=== PATIENT | female | born 1995 | race Caucasian/White ===

== ENCOUNTER 2017-04-28 22:14 | Emergency (ER) | payer MEDICAID ==
[~2017-04-28] VITALS: Ht 157.5 cm; Wt 50.9 kg
[2017-04-28] MEDS ORDERED: ONDANSETRON 2MG/ML, 2ML IVPush ONE (22:30)
[2017-04-28] MEDS ORDERED: SODIUM CHLORIDE FLUSH 10ML SYR IVF ONE (22:30)
[2017-04-28] MEDS ORDERED: DICYCLOMINE 10 MG/ML, 2ML IM ONE (22:30)
[2017-04-28] MEDS ORDERED: SODIUM CHLORIDE 0.9% 1,000ML IVBOLUS ONE (22:30)
[2017-04-28] MEDS ORDERED: ONDANSETRON 2MG/ML, 2ML ONE (22:51)
[2017-04-28 23:02] LABS: ASPARTATE AMINO TRANSFERASE 18 U/L (15-37); BLOOD UREA NITROGEN 11 mg/dL (7-18)
[2017-04-28 23:19] VITALS: BP 102/69
== END 2017-04-28 23:22 | disposition home or self-care (01) ==
LOC: ED 23:20
DX: R19.7 Diarrhea, unspecified (principal); R11.2 Nausea with vomiting, unspecified; E86.0 Dehydration
CPT/HCPCS: 36415; 80053; 81003; 83690; 84703; 85025; 96361; 96372; 96374; 99284; J0500; J2405; J7030

== ENCOUNTER 2019-11-23 16:16 | Day surgery (SDC) | payer OTHER ==
[~2019-11-23] VITALS: Ht 157.5 cm; Wt 49.2 kg
[~2019-11-23 16:16] MED LIST: KETOROLAC 30 MG/1 ML ONE
[2019-11-23] MEDS ORDERED: LACTATED RINGERS 1,000 ML IV STA (16:28)
[2019-11-23] MEDS ORDERED: PREN1TAB60 PO (16:38)
[2019-11-23 16:41] VITALS: BP 115/74
[2019-11-23 16:51] LABS: BASOPHILS # (AUTO) 0.07 x10^3/uL (0-0.1); BASOPHILS % (AUTO) 1 % (0-1); EOSINOPHILS # (AUTO) 0.15 x10^3/uL (0-0.4); EOSINOPHILS % (AUTO) 2 % (1-7); LYMPHOCYTES # (AUTO) 1.78 x10^3/uL (1-3.4); LYMPHOCYTES % (AUTO) 24 % (22-44); MD NO; MEAN CORPUSCULAR HGB CONC 33.3 g/dL (32.4-35.8); MEAN PLATELET VOLUME 8.2 fL (7.4-10.4); MONOCYTES # (AUTO) 0.36 x10^3/uL (0.2-0.8); MONOCYTES % (AUTO) 5 % (2-9); NEUTROPHILS # (AUTO) 5.16 x10^3/uL (1.8-6.8); NEUTROPHILS % (AUTO) 69 % (42-75); PLATELET COUNT 289 x10^3/uL (130-400); RED BLOOD COUNT 4.02 x10^6/uL (3.82-5.3); RED CELL DISTRIBUTION WIDTH 13.6 % (9.6-15.2)
[2019-11-23] MEDS ORDERED: FENTANYL PF 100 MCG/2ML ONE (17:29)
[2019-11-23] MEDS ORDERED: MIDAZOLAM 1 MG/ML, 2ML ONE (17:29)
[2019-11-23] MEDS ORDERED: ACETAMINOPHEN 325 MG TABLET PO PRN (17:30)
[2019-11-23] MEDS ORDERED: PROMETHAZINE 25 MG/ML, 1ML IV PRN (17:30)
[2019-11-23] MEDS ORDERED: DIAZEPAM 5 MG/ML, 2ML IVPush PRN (17:30)
[2019-11-23] MEDS ORDERED: LACTATED RINGERS 1,000 ML IV ONE (17:30)
[2019-11-23] MEDS ORDERED: MIDAZOLAM 1 MG/ML, 2ML IV PRN (17:30)
[2019-11-23] MEDS ORDERED: OXYcodone 5 MG/5 ML ORAL.SOL UDC PO PRN (17:30)
[2019-11-23] MEDS ORDERED: ALBUTEROL/IPRATROPIUM 2.5MG/0.5MG, 3 ML NPPB PRN (17:30)
[2019-11-23] MEDS ORDERED: HYDROmorphone 2 MG/ML, 1ML IVPush PRN (17:30)
[2019-11-23] MEDS ORDERED: METOPROLOL 1 MG/ML, 5ML IV PRN (17:30)
[2019-11-23] MEDS ORDERED: hydrALAzine 20 MG/ML, 1ML IV PRN (17:30)
[2019-11-23] MEDS ORDERED: FENTANYL PF 100 MCG/2ML IV PRN (17:30)
[2019-11-23] MEDS ORDERED: MEPERIDINE/PF 25MG/ML,1ML IVPush PRN (17:30)
[2019-11-23] MEDS ORDERED: SCOPOLAMINE PATCH, 1.5MG PATCH.TD72 TD PRN (17:30)
[2019-11-23] MEDS ORDERED: LIDOCAINE 1%, 20ML ONE (17:43)
[2019-11-23] MEDS ORDERED: MISOPROSTOL 200 MCG TABLET ONE (17:43)
[2019-11-23] MEDS ORDERED: SILVER NITRATE STICK TP ONE (17:43)
[2019-11-23] MEDS ORDERED: OXYTOCIN 10 UNITS/ML, 1ML ONE (17:43)
[2019-11-23] MEDS ORDERED: VASOPRESSIN 20 UNIT/ML, 1ML ONE (17:44)
[2019-11-23] MEDS ORDERED: PROPOFOL 50 ML ONE (18:12)
[2019-11-23] MEDS ORDERED: PROPOFOL 10 MG/ML, 20ML ONE (18:34)
[2019-11-23] MEDS ORDERED: ONDANSETRON 2MG/ML, 2ML ONE (18:34)
[2019-11-23] MEDS ORDERED: DEXAMETHASONE 4 MG/ML, 1ML ONE (18:34)
[2019-11-23] MEDS ORDERED: CEFAZOLIN 1,000 MG ONE (18:34)
== END 2019-11-23 20:38 | disposition home or self-care (01) ==
LOC: OR 16:16 → 4NE 19:30 → OR 20:38
PROVIDERS: ATTEND Obstetrics & Gynecology
DX: O02.1 Missed abortion (principal); Z98.890 Other specified postprocedural states; Z80.3 Family history of malignant neoplasm of breast; Z82.49 Family history of ischemic heart disease and other diseases of the circulatory system
CPT/HCPCS: 36415; 59820; 85025; 86850; 86900; 88305; J0690; J1100; J1885; J2250; J2405; J2704; J3010; J7120; G0378; J2590